=== PATIENT | male | born 1995 | race Caucasian/White ===

== ENCOUNTER 2016-09-15 13:11 | Inpatient (IN) | payer OTHER ==
[~2016-09-15] VITALS: Ht 179.1 cm; Wt 99.5 kg
[2016-09-15 13:35] VITALS: BP 129/57; PULSE 79; RESP 18; TEMP 98.8; O2SAT 99
[2016-09-15] MEDS ORDERED: ONDANSETRON HCL 4 MG/2 ML VIAL IV PUSH ONE (14:00)
[2016-09-15] MEDS ORDERED: HYDROmorphone HCL PF 1 MG/ML VIAL IV PUSH ONE (14:00)
[2016-09-15] MEDS ORDERED: SODIUM CHLOR 0.9% 1000 ML INJ 1,000 ML IV ONE (14:00)
[2016-09-15] MEDS ORDERED: SODIUM CHLORIDE 0.9% FLUSH 5 ML FLUSH IVF PRN (14:00)
[2016-09-15 14:11] VITALS: O2SAT 98
[2016-09-15 14:17] LABS: AUTOMATED NEUTROPHIL # 13.8 TH/MM3 (1.8-7.7); BASOPHIL # 0.7 TH/MM3 (0-0.2); BASOPHIL % 4.1 % (0.0-2.0); EOSINOPHIL # 0.1 TH/MM3 (0-0.4); EOSINOPHIL % 0.3 % (0.0-4.0); HEMATOCRIT 48.4 % (39.0-51.0); LYMPH % 7.6 % (9.0-44.0); LYMPHOCYTE # 1.3 TH/MM3 (1.0-4.8); MEAN CELL VOLUME 86.8 FL (80.0-100.0); MEAN CORPUSCULAR HEMOGLOBIN 29.2 PG (27.0-34.0); MEAN CORPUSCULAR HGB CONC 33.7 % (32.0-36.0); MONO % 9.8 % (0.0-8.0); NEUT % 78.2 % (16.0-70.0); PLATELET COUNT 232 TH/MM3 (150-450); RED BLOOD COUNT 5.57 MIL/MM3 (4.50-5.90); WHITE BLOOD COUNT 17.6 TH/MM3 (4.0-11.0)
--- NOTE | 2016-09-15 14:19 | PD ---
HPI Chief Complaint: Abdominal Pain Time Seen by Provider: 13:54 Travel History International Travel<30 days: No Contact w/Intl Traveler<30days: No Traveled to known affect area: No History of Present Illness HPI 20-year-old male with history of no significant past medical issues, presents to the ER today with periumbilical and right lower quadrant abdominal pains that started this morning. He has been nauseous but denies any vomiting. Pain is currently a 8 out of 10. He states it is constant. He does not know any exacerbating or alleviating factors. He denies any fevers, diarrhea, urinary symptoms, or any other issues. Modifying Factors: None Associated Signs & Symptoms: Right lower quadrant abdominal pain Risk Factors: None PFSH Past Medical History Medical History: Denies Significant Hx Past Surgical History Surgical History: No Previous Surgery Social History Alcohol Use: Yes (occ) Tobacco Use: No Substance Use: No Allergies-Medications (Allergen,Severity, Reaction): Coded Allergies: No Known Allergies (Unverified , 09/15/16) Review of Systems Except as stated in HPI: all other systems reviewed are Neg Physical Exam Narrative GENERAL: Well-developed young white male patient in mild distress. SKIN: Warm and dry. HEAD: Atraumatic. Normocephalic. EYES: Pupils equal and round. No scleral icterus. No injection or drainage. ENT: No nasal bleeding or discharge. Mucous membranes pink and moist. NECK: Trachea midline. No JVD. CARDIOVASCULAR: Regular rate and rhythm. No murmur appreciated. RESPIRATORY: No accessory muscle use. Clear to auscultation. Breath sounds equal bilaterally. GASTROINTESTINAL: Abdomen soft, right lower quadrant tenderness without guarding or rebound, nondistended. Hepatic and splenic margins not palpable. Positive Rovsing sign. MUSCULOSKELETAL: No obvious deformities. No clubbing. No cyanosis. No edema. NEUROLOGICAL: Awake and alert. No obvious cranial nerve deficits. Motor grossly within normal limits. Normal speech. PSYCHIATRIC: Appropriate mood and affect; insight and judgment normal. Data Data Last Documented VS Vital Signs Date Time Temp Pulse Resp B/P Pulse Ox O2 Delivery O2 Flow Rate FiO2 09/15/16 15:43 90 18 114/59 97 Room Air 09/15/16 13:35 98.8 Orders Complete Blood Count With Diff (09/15/16 13:47) Comprehensive Metabolic Panel (09/15/16 13:47) Lipase (09/15/16 13:47) Urinalysis - C+S If Indicated (09/15/16 13:47) Iv Access Insert/Monitor (09/15/16 13:47) Ecg Monitoring (09/15/16 13:47) Oximetry (09/15/16 13:47) Sodium Chloride 0.9% Flush (Ns Flush) (09/15/16 14:00) Sodium Chlor 0.9% 1000 Ml Inj (Ns 1000 M (09/15/16 14:00) Ondansetron Inj (Zofran Inj) (09/15/16 14:00) Hydromorphone Pf Inj (Dilaudid Pf Inj) (09/15/16 14:00) Ct Abd/Pel W Iv Contrast(Rout) (09/15/16 14:04) Iohexol 350 Inj (Omnipaque 350 Inj) (09/15/16 15:06) Metronidazole 500 Mg Inj (Flagyl 500 Mg (09/15/16 16:00) Ciprofloxacin 400 Mg Premix (Cipro 400 M (09/15/16 16:00) Labs Laboratory Tests Test 09/15/16 09/15/16 14:08 14:30 White Blood Count 17.6 TH/MM3 Red Blood Count 5.57 MIL/MM3 Hemoglobin 16.3 GM/DL Hematocrit 48.4 % Mean Corpuscular Volume 86.8 FL Mean Corpuscular Hemoglobin 29.2 PG Mean Corpuscular Hemoglobin 33.7 % Concent Red Cell Distribution Width 12.0 % Platelet Count 232 TH/MM3 Mean Platelet Volume 9.6 FL Neutrophils (%) (Auto) 78.2 % Lymphocytes (%) (Auto) 7.6 % Monocytes (%) (Auto) 9.8 % Eosinophils (%) (Auto) 0.3 % Basophils (%) (Auto) 4.1 % Neutrophils # (Auto) 13.8 TH/MM3 Lymphocytes # (Auto) 1.3 TH/MM3 Monocytes # (Auto) 1.7 TH/MM3 Eosinophils # (Auto) 0.1 TH/MM3 Basophils # (Auto) 0.7 TH/MM3 CBC Comment DIFF FINAL Differential Comment Sodium Level 140 MEQ/L Potassium Level 3.8 MEQ/L Chloride Level 105 MEQ/L Carbon Dioxide Level 26.5 MEQ/L Anion Gap 9 MEQ/L Blood Urea Nitrogen 12 MG/DL Creatinine 1.00 MG/DL Estimat Glomerular Filtration 94 ML/MIN Rate Random Glucose 92 MG/DL Calcium Level 8.8 MG/DL Total Bilirubin 0.8 MG/DL Aspartate Amino Transf 17 U/L (AST/SGOT) Alanine Aminotransferase 39 U/L (ALT/SGPT) Alkaline Phosphatase 103 U/L Total Protein 7.1 GM/DL Albumin 4.0 GM/DL Lipase 104 U/L Urine Collection Type CLEAN CATCH Urine Color YELLOW Urine Turbidity CLEAR Urine pH 8.0 Urine Specific [place] 1.020 Urine Protein TRACE mg/dL Urine Glucose (UA) NEG mg/dL Urine Ketones 40 mg/dL Urine Occult Blood NEG Urine Nitrite NEG Urine Bilirubin NEG Urine Leukocyte Esterase NEG Urine WBC 0-2 /hpf Microscopic Urinalysis Comment CULT NOT INDICATED MDM Medical Decision Making Medical Screen Exam Complete: Yes Emergency Medical Condition: Yes Medical Record Reviewed: Yes Interpretation(s) Laboratory Tests Test 09/15/16 09/15/16 14:08 14:30 White Blood Count 17.6 TH/MM3 (4.0-11.0) Neutrophils (%) (Auto) 78.2 % (16.0-70.0) Lymphocytes (%) (Auto) 7.6 % (9.0-44.0) Monocytes (%) (Auto) 9.8 % (0.0-8.0) Basophils (%) (Auto) 4.1 % (0.0-2.0) Neutrophils # (Auto) 13.8 TH/MM3 (1.8-7.7) Monocytes # (Auto) 1.7 TH/MM3 (0-0.9) Basophils # (Auto) 0.7 TH/MM3 (0-0.2) Urine Ketones 40 mg/dL (NEG) Last 24 hours Impressions Abdomen/Pelvis CT 09/15/16 1404 Signed Impressions: Service Date/Time: Thursday, September 15, 2016 14:48 - CONCLUSION: Bowel wall thickening mid transverse colon and pericecal adenopathy. Colitis and inflammatory bowel disease would be consideration. There is no evidence for appendicitis. There is no free air or free fluid. Chester Moss MD FACR Differential Diagnosis Right lower quadrant abdominal painsgastroenteritis versus appendicitis versus renal colic Narrative Course Initial lab work shows leukocytosis and CAT scan is showing questionable cecal summation concerning for possible inflammatory bowel disease. The appendix is visualized and normal. Considering the patient's exam, case was discussed with Dr. Art who states that he feels that the patient should be medically admitted with consult to GI for inflammatory bowel disease. The case was discussed with Dr. Gatica states that he would like to do further colonoscopy for evaluation. Case was then discussed with Dr. Avelar for admission. Diagnosis Primary Impression: Right lower quadrant abdominal pain Admitting Information Admitting Physician Requests: it Iva Dong MD Sep 15, 2016 14:19
[2016-09-15 14:23] LABS: CHLORIDE 105 MEQ/L (98-107); POTASSIUM 3.8 MEQ/L (3.5-5.1); SODIUM (NA) 140 MEQ/L (136-145)
[2016-09-15 14:26] LABS: ANION GAP 9 MEQ/L (5-15); BICARBONATE 26.5 MEQ/L (21.0-32.0)
[2016-09-15 14:27] LABS: BLOOD UREA NITROGEN 12 MG/DL (7-18)
[2016-09-15 14:29] LABS: ALT (GPT) 39 U/L (12-78); AST (GOT) 17 U/L (15-37)
[2016-09-15 14:30] LABS: GLOMERULAR FILTRATION RATE 94 ML/MIN (>89)
[2016-09-15 14:31] LABS: TOTAL BILIRUBIN ADULT 0.8 MG/DL (0.2-1.0)
[2016-09-15 14:32] LABS: ALKALINE PHOSPHATASE 103 U/L (45-117)
[2016-09-15 14:33] LABS: HEMO FLAGS DIFF FINAL
[2016-09-15 14:36] LABS: BLOOD, URINE NEG (NEG); GLUCOSE,URINE NEG (NEG); KETONE, URINE 40 mg/dL (NEG); NITRITE,URINE NEG (NEG)
[2016-09-15 14:41] LABS: METHOD OF COLLECTION CLEAN CATCH; URINE COLOR YELLOW (YELLW/STRAW)
[2016-09-15 14:42] LABS: COMMENT (UR) CULT NOT INDICATED; CULTURE IF INDICATED CULT NOT INDICATED; WBC, URINE 0-2 /hpf (0-5)
[2016-09-15] MEDS ORDERED: IOHEXOL 350 MG/ML 10 ML VIAL (for RAD DIAG) IV ONE (15:06)
--- NOTE | 2016-09-15 15:33 | RADHPO ---
EXAM DATE/TIME: 09/15/2016 14:48 [facility] COMPARISON: No previous studies available for comparison. INDICATIONS : Right lower quadrant pain. IV CONTRAST: 95 cc Omnipaque 350 (iohexol) IV ORAL CONTRAST: No oral contrast ingested. RADIATION DOSE: 26.86 CTDIvol (mGy) MEDICAL HISTORY : None SURGICAL HISTORY : None. ENCOUNTER: Initial ACUITY: 1 day PAIN SCALE: 7/10 LOCATION: Right lower quadrant TECHNIQUE: Volumetric scanning of the abdomen and pelvis was performed. Using automated exposure control and ad justment of the mA and/or kV according to patient size, radiation dose was kept as low as reasonably achievable to obtain optimal diagnostic quality images. FINDINGS: LOWER LUNGS: The visualized lower lungs are clear. LIVER: Homogeneous density without lesion. There is no dilation of the biliary tree. No calcified gallston es. SPLEEN: Normal size without lesion. PANCREAS: Within normal limits. KIDNEYS: Normal in size and shape. There is no mass, stone or hydronephrosis. ADRENAL GLANDS: Within normal limits. VASCULAR: There is no aortic aneurysm. BOWEL/MESENTERY: There is bowel wall thickening in the transverse colon. There is moderate pericecal adenopathy. Thi s can be seen both inflammatory bowel disease and colitis. There is no evidence for an appendicitis. . ABDOMINAL WALL: Within normal limits. RETROPERITONEUM: There is no lymphadenopathy. BLADDER: No wall thickening or mass. REPRODUCTIVE: Within normal limits. INGUINAL: There is no lymphadenopathy or hernia. MUSCULOSKELETAL: Within normal limits for patient age. CONCLUSION: Bowel wall thickening mid transverse colon and pericecal adenopathy. Colitis and inflammatory bowel disease would be consideration. There is no evidence for appendicitis. There is no free air or free fluid. Chester Moss MD FACR on September 15, 2016 at 15:29 Board Certified Radiologist. This report was verified electronically.
[2016-09-15 15:43] VITALS: BP 114/59; PULSE 90; RESP 18; O2SAT 97
[2016-09-15] MEDS ORDERED: CIPROFLOXACIN 400 MG PREMIX 200 ML IV ONE (16:00)
[2016-09-15] MEDS ORDERED: metroNIDAZOLE 500 MG INJ 100 ML IV ONE (16:00)
[2016-09-15 17:12] VITALS: BP 116/56; PULSE 89; RESP 18; O2SAT 98
[2016-09-15] MEDS ORDERED: ONDANSETRON HCL 4 MG/2 ML VIAL IVP PRN (17:15)
[2016-09-15] MEDS ORDERED: ACETAMINOPHEN 325 MG TAB PO PRN ×2 (17:15)
[2016-09-15] MEDS ORDERED: NALOXONE HCL 0.4 MG/ML AMP IV PRN (17:15)
--- NOTE | 2016-09-15 17:18 | HHI.HP ---
[facility] Rajiv Viveros MD Admission Diagnosis right lower quadrant abdominal pain/cecal inflammation Diagnoses: (1) Right lower quadrant abdominal pain (2) Colitis (3) IBD (inflammatory bowel disease) Chief Complaint: Right lower quadrant pain Travel History International Travel<30 Days: No Contact w/Intl Traveler <30 Da: No Traveled to Known Affected Are: No History of Present Illness 20 year-old female with no significant past medical history presented to the ED for evaluation of an acute onset of right lower quadrant rated 8/10 in intensity which started last night associated with nausea without any emesis and decreased by mouth intake since this morning. Patient states he had one episode of diarrhea on Tuesday which resolved, and denies any mucus or blood present. Denies any bladder or bowel dysfunction prior to this episode and he is currently healthy. He is not on any medication. There was no associated febrile episode however patient now with WBC of 17.6. Review of Systems Other 12 systems reviewed and are negative except for the one mentioned in the history of present illness Past Family Social History Past Medical History Denies Significant Hx Past Surgical History No Previous Surgery Reported Medications Not currently on any medication Allergies: Coded Allergies: No Known Allergies (Unverified , 09/15/16) Family History Mom with a history of hypertension Reports family history of IBD Social History Alcohol Use: Yes (occ) Tobacco Use: No Substance Use: No Physical Exam Vital Signs Vital Signs Date Time Temp Pulse Resp B/P Pulse Ox O2 Delivery O2 Flow Rate FiO2 09/15/16 17:12 89 18 116/56 98 Room Air 09/15/16 15:43 90 18 114/59 97 Room Air 09/15/16 14:11 98 Room Air 09/15/16 13:35 98.8 79 18 129/57 99 Physical Exam GENERAL: This is a well-nourished, well-developed patient, in no apparent distress. SKIN: No rashes, ecchymoses or lesions. Cool and dry. HEAD: Atraumatic. Normocephalic. No temporal or scalp tenderness. EYES: Pupils equal round and reactive. Extraocular motions intact. No scleral icterus. No injection or drainage. ENT: Nose without bleeding, purulent drainage or septal hematoma. Throat without erythema, tonsillar hypertrophy or exudate. Uvula midline. Airway patent. NECK: Trachea midline. No JVD or lymphadenopathy. Supple, nontender, no meningeal signs. CARDIOVASCULAR: Regular rate and rhythm without murmurs, gallops, or rubs. RESPIRATORY: Clear to auscultation. Breath sounds equal bilaterally. No wheezes , rales, or rhonchi. GASTROINTESTINAL: Abdomen soft, tender right lower quadrant, nondistended. No hepato-splenomegaly, or palpable masses. No guarding. MUSCULOSKELETAL: Extremities without clubbing, cyanosis, or edema. No joint tenderness, effusion, or edema noted. No calf tenderness. Negative Homans sign bilaterally. NEUROLOGICAL: Awake and alert. Cranial nerves II through XII intact. Motor and sensory grossly within normal limits. Five out of 5 muscle strength in all muscle groups. Normal speech. Laboratory Laboratory Tests Test 09/15/16 09/15/16 14:08 14:30 White Blood Count 17.6 Red Blood Count 5.57 Hemoglobin 16.3 Hematocrit 48.4 Mean Corpuscular Volume 86.8 Mean Corpuscular Hemoglobin 29.2 Mean Corpuscular Hemoglobin 33.7 Concent Red Cell Distribution Width 12.0 Platelet Count 232 Mean Platelet Volume 9.6 Neutrophils (%) (Auto) 78.2 Lymphocytes (%) (Auto) 7.6 Monocytes (%) (Auto) 9.8 Eosinophils (%) (Auto) 0.3 Basophils (%) (Auto) 4.1 Neutrophils # (Auto) 13.8 Lymphocytes # (Auto) 1.3 Monocytes # (Auto) 1.7 Eosinophils # (Auto) 0.1 Basophils # (Auto) 0.7 CBC Comment DIFF FINAL Differential Comment Sodium Level 140 Potassium Level 3.8 Chloride Level 105 Carbon Dioxide Level 26.5 Anion Gap 9 Blood Urea Nitrogen 12 Creatinine 1.00 Estimat Glomerular Filtration 94 Rate Random Glucose 92 Calcium Level 8.8 Total Bilirubin 0.8 Aspartate Amino Transf 17 (AST/SGOT) Alanine Aminotransferase 39 (ALT/SGPT) Alkaline Phosphatase 103 Total Protein 7.1 Albumin 4.0 Lipase 104 Urine Collection Type CLEAN CATCH Urine Color YELLOW Urine Turbidity CLEAR Urine pH 8.0 Urine Specific [place] 1.020 Urine Protein TRACE Urine Glucose (UA) NEG Urine Ketones 40 Urine Occult Blood NEG Urine Nitrite NEG Urine Bilirubin NEG Urine Leukocyte Esterase NEG Urine WBC 0-2 Microscopic Urinalysis Comment CULT NOT INDICATED Result Diagram: 09/15/16 1408 09/15/16 1408 Imaging Last Impressions Abdomen/Pelvis CT 09/15/16 1404 Signed Impressions: Service Date/Time: Thursday, September 15, 2016 14:48 - CONCLUSION: Bowel wall thickening mid transverse colon and pericecal adenopathy. Colitis and inflammatory bowel disease would be consideration. There is no evidence for appendicitis. There is no free air or free fluid. Chester Moss MD FACR Assessment and Plan Problem List: (1) Right lower quadrant abdominal pain ICD Code: R10.31 Status: Acute (2) Colitis ICD Code: K52.9 Status: Acute (3) IBD (inflammatory bowel disease) ICD Code: K52.9 Status: Acute Assessment and Plan 20-year-old male with 1-Right lower quadrant pain: CT abdomen noted and reviewed by me with finding questionable for colitis and IBD. Pain management accordingly 2-Colitis: Per CT abdomen /pelvic finding, status post Flagyl and Cipro IV 1, continue with antibiotics and the presence of WBC. 3-Questionable IBD per CT abdomen/pelvics finding: Gastroenterology consultation for evaluation for possible colonoscopy. Clear liquid now, bowel prep and nothing by mouth after midnight. 4-Leukocytosis: Treat as in above DVT prophylaxis: Encourage ambulation Code Status Full code Discussed Condition With Patient, mom, ED physician Physician Certification 2 Midnight Certification Type: Admission for Inpatient Services Order for Inpatient Services The services are ordered in accordance with Medicare regulations or non- Medicare payer requirements, as applicable. In the case of services not specified as inpatient-only, they are appropriately provided as inpatient services in accordance with the 2-midnight benchmark. Estimated LOS (days): 2 days is the estimated time the patient will need to remain in the hospital, assuming treatment plan goals are met and no additional complications. Post-Hospital Plan: Not yet determined Zak Avelar MD Sep 15, 2016 17:18
[2016-09-15] MEDS ORDERED: MORPHINE SULFATE 4 MG/ML INJ IV PUSH PRN (18:00)
[2016-09-15 18:02] VITALS: BP 119/70; PULSE 78; RESP 16; TEMP 98.1; O2SAT 97
[2016-09-15 20:00] VITALS: BP 114/62; PULSE 77; RESP 20; TEMP 98.2; O2SAT 99
[2016-09-15] MEDS: LACTOBACILLUS ACIDOPHILUS TAB PO SCH (20:25)
[2016-09-15] MEDS: ACETAMINOPHEN/HYDROcodone 325 MG/5 MG TAB PO PRN (20:26)
[2016-09-15] MEDS: SODIUM CHLORIDE 0.9% FLUSH 5 ML FLUSH FLUSH SCH (20:26)
--- NOTE | 2016-09-15 20:49 | PD.CONS ---
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 PFSH Past Medical History None Past Surgical History None Coded Allergies: No Known Allergies (Unverified , 09/15/16) Medications None Family History Mom with a history of hypertension No family history of inflammatory bowel disease Social History Occasional alcohol USE otherwise unremarkable Review of Systems ROS Review of systems Patient denies any headache dizziness blurry vision, denies any chest pain shortness of breath cough fever chills, Denies any palpitations or fatigue denies any polyuria dysuria hematuria, denies any numbness tingling or weakness, denies any skin rash pruritus or jaundice, denies any easy bruising or bleeding tendency, denies any recent change in mood GI Exam Vitals I&O Vital Signs Date Time Temp Pulse Resp B/P Pulse Ox O2 Delivery O2 Flow Rate FiO2 09/15/16 20:00 98.2 77 20 114/62 99 09/15/16 18:02 98.1 78 16 119/70 97 09/15/16 17:12 89 18 116/56 98 Room Air 09/15/16 15:43 90 18 114/59 97 Room Air 09/15/16 14:11 98 Room Air 09/15/16 13:35 98.8 79 18 129/57 99 I/O 09/14/16 09/14/16 09/14/16 09/15/16 09/15/16 09/15/16 07:00 15:00 23:00 07:00 15:00 23:00 Intake Total 1300 ml Balance 1300 ml Intake Oral 300 ml IV Total 1000 ml Imaging Last Impressions Abdomen/Pelvis CT 09/15/16 1404 Signed Impressions: Service Date/Time: Thursday, September 15, 2016 14:48 - CONCLUSION: Bowel wall thickening mid transverse colon and pericecal adenopathy. Colitis and inflammatory bowel disease would be consideration. There is no evidence for appendicitis. There is no free air or free fluid. Chester Moss MD FACR Laboratory Test 09/15/16 09/15/16 14:08 14:30 White Blood Count 17.6 TH/MM3 Red Blood Count 5.57 MIL/MM3 Hemoglobin 16.3 GM/DL Hematocrit 48.4 % Mean Corpuscular Volume 86.8 FL Mean Corpuscular Hemoglobin 29.2 PG Mean Corpuscular Hemoglobin 33.7 % Concent Red Cell Distribution Width 12.0 % Platelet Count 232 TH/MM3 Mean Platelet Volume 9.6 FL Neutrophils (%) (Auto) 78.2 % Lymphocytes (%) (Auto) 7.6 % Monocytes (%) (Auto) 9.8 % Eosinophils (%) (Auto) 0.3 % Basophils (%) (Auto) 4.1 % Neutrophils # (Auto) 13.8 TH/MM3 Lymphocytes # (Auto) 1.3 TH/MM3 Monocytes # (Auto) 1.7 TH/MM3 Eosinophils # (Auto) 0.1 TH/MM3 Basophils # (Auto) 0.7 TH/MM3 CBC Comment DIFF FINAL Differential Comment Sodium Level 140 MEQ/L Potassium Level 3.8 MEQ/L Chloride Level 105 MEQ/L Carbon Dioxide Level 26.5 MEQ/L Anion Gap 9 MEQ/L Blood Urea Nitrogen 12 MG/DL Creatinine 1.00 MG/DL Estimat Glomerular Filtration 94 ML/MIN Rate Random Glucose 92 MG/DL Calcium Level 8.8 MG/DL Total Bilirubin 0.8 MG/DL Aspartate Amino Transf 17 U/L (AST/SGOT) Alanine Aminotransferase 39 U/L (ALT/SGPT) Alkaline Phosphatase 103 U/L Total Protein 7.1 GM/DL Albumin 4.0 GM/DL Lipase 104 U/L Urine Collection Type CLEAN CATCH Urine Color YELLOW Urine Turbidity CLEAR Urine pH 8.0 Urine Specific [place] 1.020 Urine Protein TRACE mg/dL Urine Glucose (UA) NEG mg/dL Urine Ketones 40 mg/dL Urine Occult Blood NEG Urine Nitrite NEG Urine Bilirubin NEG Urine Leukocyte Esterase NEG Urine WBC 0-2 /hpf Microscopic Urinalysis Comment CULT NOT INDICATED Physical Examination HEENT: Pupils round and reactive to light; normocephalic; atraumatic; no jaundice. Throat is clear. NECK: Neck is supple, no JVD, no lymphadenopathy. CHEST: Chest is clear to auscultation and percussion. CARDIAC: Regular rate and rhythm with no murmur gallop or rubs. ABDOMEN: Soft, nondistended, moderately to moderately severe tenderness especially in the right lower quadrant with some rebound and guarding; no hepatosplenomegaly; bowel sounds are present in all four quadrants. EXTREMITIES: No clubbing, cyanosis, or edema. SKIN: Normal; no rash; no jaundice. [employer]EE[employer] HIGHWAYS: No focal deficits; alert and oriented times three. Assessment and Plan Plan Abdominal pain Acute colitis of unclear etiology but most likely to be infectious can't rule out inflammatory at this point Case discussed with Dr. Rubens Lipscomb appendicitis at this point I would continue with aggressive hydration and continue with antibiotics We will hold off on endoscopy at this point and allow the antibiotics to work if symptoms persist then we will pursue colonoscopy otherwise this may be done on an outpatient basis if he continues to do well with antibiotic use Further recommendation shall depend on his hospital course Yosvany Moore MD Sep 15, 2016 20:49
--- NOTE | 2016-09-15 23:10 | MB ---
cc: RAMESH RATLIFF M.D. DATE OF CONSULTATION: 09/15/2016 REASON FOR CONSULTATION: Right lower quadrant pain. HISTORY OF PRESENT ILLNESS The patient is a 20-year-old male with no significant past medical history with acute onset of right lower quadrant pain that started last night and has continued to remain severe. The patient has not had any emesis but has had nausea and has had a decreased p.o. intake. The patient had one episode of diarrhea on Tuesday (three days ago) which resolved. He has not had any other episodes of this. REVIEW OF SYSTEMS: 12-point review of systems is negative except as indicated above. PAST SURGICAL HISTORY: Includes removal wisdom teeth. He has not had any other surgery. ALLERGIES: None known. FAMILY HISTORY: History of hypertension in the family. Family history of inflammatory bowel disease. SOCIAL HISTORY: The patient uses alcohol occasionally, does not smoke or use other substances. PHYSICAL EXAMINATION: Reveals a tall heavy framed individual in no acute distress. VITAL SIGNS: Blood pressure 114/62, pulse 77, respiratory rate 20, temperature 98.2, 99% saturation on room air. HEENT: Sclerae anicteric. Pupils reactive. Chest: Clear to auscultation. Cardiac exam reveals regular rate and rhythm. Abdomen is soft with tenderness in the right lower quadrant with guarding. There is a positive Rovsing's sign with pain in the right lower quadrant when pressing on the left. There are no hernias noted. LABORATORY VALUES: Laboratory values demonstrate WBCs of 17.6. Electrolytes are essentially within normal limits and LFTs are normal as well. Urinalysis demonstrates urine ketones. IMAGING STUDIES Specifically reports no evidence of appendicitis and bowel wall thickening in the transverse colon and some moderate butch cecal adenopathy. This is thought to be due to either inflammatory bowel disease or colitis. ASSESSMENT The patient was seen simultaneously with Dr. Moore. Discussion with the patient and his mother ensued and it is very likely that the patient has an infectious etiology for his colitis, although an inflammatory process is also possible. The patient is on Cipro and Flagyl already; he has repeat labs ordered in the morning. PLAN: The patient can continue on clear liquid diet. We will follow with you. If his white count decreases tomorrow and his abdominal pain is better, we will likely sign off within 24 to 48 hours. He will likely not require any surgery given the findings. Thank you for asking us to see this individual. MD BAKARI Espinosa/URIEL /9:13 PM /11:04 PM
[2016-09-15] MEDS: metroNIDAZOLE 500 MG INJ 100 ML IV SCH (23:34)
[2016-09-15] MEDS: SODIUM CHLORIDE 0.9% FLUSH 5 ML FLUSH FLUSH PRN (23:34)
[2016-09-16] VITALS: BP 111/59; PULSE 61; RESP 20; TEMP 97.5; O2SAT 97
[2016-09-16] MEDS: SODIUM CHLORIDE 0.9% FLUSH 5 ML FLUSH FLUSH PRN (03:44)
[2016-09-16] MEDS: CIPROFLOXACIN 400 MG PREMIX 200 ML IV SCH ×2 (03:44→15:59)
[2016-09-16] MEDS: ACETAMINOPHEN/HYDROcodone 325 MG/5 MG TAB PO PRN (03:44)
[2016-09-16 05:34] LABS: CHLORIDE 103 MEQ/L (98-107); POTASSIUM 3.5 MEQ/L (3.5-5.1); SODIUM (NA) 139 MEQ/L (136-145)
[2016-09-16 05:36] LABS: BASOPHIL % 0.4 % (0.0-2.0); EOSINOPHIL # 0.2 TH/MM3 (0-0.4); EOSINOPHIL % 2.2 % (0.0-4.0); HEMO FLAGS DIFF FINAL; LYMPH % 20.2 % (9.0-44.0); LYMPHOCYTE # 1.9 TH/MM3 (1.0-4.8); MEAN CORPUSCULAR HEMOGLOBIN 29.8 PG (27.0-34.0); MEAN CORPUSCULAR HGB CONC 33.8 % (32.0-36.0); MONO % 13.4 % (0.0-8.0); NEUT % 63.8 % (16.0-70.0); PLATELET COUNT 213 TH/MM3 (150-450); RED BLOOD COUNT 4.89 MIL/MM3 (4.50-5.90); RED CELL DISTRIBUTION WIDTH 12.5 % (11.6-17.2); WHITE BLOOD COUNT 9.3 TH/MM3 (4.0-11.0)
[2016-09-16 05:52] LABS: ALKALINE PHOSPHATASE 81 U/L (45-117); ALT (GPT) 30 U/L (12-78); ANION GAP 8 MEQ/L (5-15); AST (GOT) 11 U/L (15-37); BICARBONATE 28.5 MEQ/L (21.0-32.0); BLOOD UREA NITROGEN 9 MG/DL (7-18); GLOMERULAR FILTRATION RATE 97 ML/MIN (>89); TOTAL BILIRUBIN ADULT 0.8 MG/DL (0.2-1.0)
[2016-09-16 08:00] VITALS: BP 114/64; PULSE 63; RESP 18; TEMP 97.5; O2SAT 99
[2016-09-16] MEDS: metroNIDAZOLE 500 MG INJ 100 ML IV SCH ×3 (08:54→23:43)
[2016-09-16] MEDS: SODIUM CHLORIDE 0.9% FLUSH 5 ML FLUSH FLUSH SCH ×2 (08:55→21:00)
[2016-09-16] MEDS: LACTOBACILLUS ACIDOPHILUS TAB PO SCH ×2 (08:57→21:00)
[2016-09-16] MEDS: PANTOPRAZOLE SODIUM 40 MG VIAL IV PUSH SCH (08:57)
[2016-09-16] MEDS ORDERED: INFLUENZA VIRUS VACCINE (QUADRIVALENT) 0.5 ML SYR IM ONE (10:00)
--- NOTE | 2016-09-16 10:41 | HHI.PR ---
Subjective Remarks Patient resting comfortably in bed Still having mild right upper quadrant abdominal discomfort, no nausea or vomiting, no bowel movement Objective Vitals Vital Signs Date Time Temp Pulse Resp B/P Pulse Ox O2 Delivery O2 Flow Rate FiO2 09/16/16 08:00 97.5 63 18 114/64 99 09/16/16 00:00 97.5 61 20 111/59 97 09/15/16 20:00 98.2 77 20 114/62 99 09/15/16 18:02 98.1 78 16 119/70 97 09/15/16 17:12 89 18 116/56 98 Room Air 09/15/16 15:43 90 18 114/59 97 Room Air 09/15/16 14:11 98 Room Air 09/15/16 13:35 98.8 79 18 129/57 99 I/O 09/15/16 09/15/16 09/15/16 09/16/16 09/16/16 09/16/16 07:00 15:00 23:00 07:00 15:00 23:00 Intake Total 1780 ml 240 ml Balance 1780 ml 240 ml Intake Oral 780 ml 240 ml IV Total 1000 ml # Voids 2 2 # Bowel Movements 0 0 Result Diagram: 09/16/16 0454 09/16/16 0454 Objective Remarks GENERAL: This is a well-nourished, well-developed patient, in no apparent distress. SKIN: No rashes, warm and dry HEAD: Atraumatic. Normocephalic. EYES: Pupils equal round and reactive. Extraocular motions intact. No scleral icterus. ENT: Nose without bleeding, or drainage, Airway patent. NECK: Trachea midline. Supple CARDIOVASCULAR: Regular rate and rhythm without murmurs, gallops, or rubs. RESPIRATORY: Fair air entry bilaterally. No wheezes, rales, or rhonchi. GASTROINTESTINAL: Abdomen soft, non-tender, nondistended. Positive bowel sounds MUSCULOSKELETAL: Extremities without clubbing, cyanosis, or edema. Pedal pulses appreciated NEUROLOGICAL: Awake and alert. Moves all extremity. Normal speech.no focal neurological deficit A/P Problem List: (1) Right lower quadrant abdominal pain ICD Code: R10.31 Status: Acute (2) Colitis ICD Code: K52.9 Status: Acute (3) IBD (inflammatory bowel disease) ICD Code: K52.9 Status: Acute Assessment and Plan 20-year-old male with -Right lower quadrant pain: Personal review CT abdomen suggesting colitis and IBD. Pain management accordingly, bowel rest, GI and GS consulted, will follow the recommendation -Colitis: Per CT abdomen /pelvic finding, Flagyl and Cipro IV , close monitoring with GI and GS -Leukocytosis: Resolved DVT prophylaxis: Encourage ambulation Zara Deleon MD Sep 16, 2016 10:41
[2016-09-16 12:00] VITALS: BP 115/59; PULSE 68; RESP 18; TEMP 98.2; O2SAT 98
--- NOTE | 2016-09-16 12:26 | HHI.PR ---
Subjective Subjective Notes Resting in bed Pain better today Objective Vitals/I&O Vital Signs Date Time Temp Pulse Resp B/P Pulse Ox O2 Delivery O2 Flow Rate FiO2 09/16/16 08:00 97.5 63 18 114/64 99 09/15/16 17:12 Room Air Labs Laboratory Tests Test 09/15/16 09/15/16 09/16/16 14:08 14:30 04:54 White Blood Count 17.6 9.3 Red Blood Count 5.57 4.89 Hemoglobin 16.3 14.6 Hematocrit 48.4 43.0 Mean Corpuscular Volume 86.8 88.0 Mean Corpuscular Hemoglobin 29.2 29.8 Mean Corpuscular Hemoglobin 33.7 33.8 Concent Red Cell Distribution Width 12.0 12.5 Platelet Count 232 213 Mean Platelet Volume 9.6 9.8 Neutrophils (%) (Auto) 78.2 63.8 Lymphocytes (%) (Auto) 7.6 20.2 Monocytes (%) (Auto) 9.8 13.4 Eosinophils (%) (Auto) 0.3 2.2 Basophils (%) (Auto) 4.1 0.4 Neutrophils # (Auto) 13.8 6.0 Lymphocytes # (Auto) 1.3 1.9 Monocytes # (Auto) 1.7 1.2 Eosinophils # (Auto) 0.1 0.2 Basophils # (Auto) 0.7 0.0 CBC Comment DIFF FINAL DIFF FINAL Differential Comment Sodium Level 140 139 Potassium Level 3.8 3.5 Chloride Level 105 103 Carbon Dioxide Level 26.5 28.5 Anion Gap 9 8 Blood Urea Nitrogen 12 9 Creatinine 1.00 0.98 Estimat Glomerular Filtration 94 97 Rate Random Glucose 92 111 Calcium Level 8.8 7.8 Total Bilirubin 0.8 0.8 Aspartate Amino Transf 17 11 (AST/SGOT) Alanine Aminotransferase 39 30 (ALT/SGPT) Alkaline Phosphatase 103 81 Total Protein 7.1 6.1 Albumin 4.0 3.2 Lipase 104 Urine Collection Type CLEAN CATCH Urine Color YELLOW Urine Turbidity CLEAR Urine pH 8.0 Urine Specific [place] 1.020 Urine Protein TRACE Urine Glucose (UA) NEG Urine Ketones 40 Urine Occult Blood NEG Urine Nitrite NEG Urine Bilirubin NEG Urine Leukocyte Esterase NEG Urine WBC 0-2 Microscopic Urinalysis Comment CULT NOT INDICATED Cardiovascular: Regular Lungs: Clear Abdomen: Other (RLQ tenderness with palpation (mild) ) Extremities: No edema A/P Assessment and Plan 20 year old male with RLQ abdominal pain; ? infectious colitis -WBC improved -Advance to fulls today -OOB and mobilize -Continue antibiotics Attending Note - Dr. Art Abdomen benign WBC's 9.3 Tolerating full liquids today Advance diet in AM Probable D/C tomorrow if ok with med team The exam, history, and the medical decision-making described in the above note were completed with the assistance of the mid-level provider. I reviewed and agree with the findings presented. I attest that I had a [id number] encounter with the patient on the same day, and personally performed and documented my assessment and findings in the medical record. Doris Randall Sep 16, 2016 12:25 Grant Art MD Sep 16, 2016 19:08
[2016-09-16 16:00] VITALS: BP 119/68; PULSE 60; RESP 18; TEMP 98.8; O2SAT 98
[2016-09-16 20:00] VITALS: BP 113/60; PULSE 54; RESP 20; TEMP 97.1; O2SAT 98
--- NOTE | 2016-09-16 20:33 | HHI.GIFU ---
Subjective Remarks Patient comfortable in bed with little to no abdominal pain he has not required any pain medications since earlier in the day he is tolerating his liquids and gelatin Objective Vitals I&O Vital Signs Date Time Temp Pulse Resp B/P Pulse Ox O2 Delivery O2 Flow Rate FiO2 09/16/16 16:00 98.8 60 18 119/68 98 09/16/16 12:00 98.2 68 18 115/59 98 09/16/16 08:00 97.5 63 18 114/64 99 09/16/16 00:00 97.5 61 20 111/59 97 I/O 09/15/16 09/15/16 09/15/16 09/16/16 09/16/16 09/16/16 07:00 15:00 23:00 07:00 15:00 23:00 Intake Total 1780 ml 240 ml 950 ml 440 ml Balance 1780 ml 240 ml 950 ml 440 ml Intake Oral 780 ml 240 ml 950 ml IV Total 1000 ml 440 ml # Voids 2 2 3 # Bowel Movements 0 0 0 Laboratory Laboratory Tests Test 09/16/16 04:54 White Blood Count 9.3 Red Blood Count 4.89 Hemoglobin 14.6 Hematocrit 43.0 Mean Corpuscular Volume 88.0 Mean Corpuscular Hemoglobin 29.8 Mean Corpuscular Hemoglobin 33.8 Concent Red Cell Distribution Width 12.5 Platelet Count 213 Mean Platelet Volume 9.8 Neutrophils (%) (Auto) 63.8 Lymphocytes (%) (Auto) 20.2 Monocytes (%) (Auto) 13.4 Eosinophils (%) (Auto) 2.2 Basophils (%) (Auto) 0.4 Neutrophils # (Auto) 6.0 Lymphocytes # (Auto) 1.9 Monocytes # (Auto) 1.2 Eosinophils # (Auto) 0.2 Basophils # (Auto) 0.0 CBC Comment DIFF FINAL Differential Comment Sodium Level 139 Potassium Level 3.5 Chloride Level 103 Carbon Dioxide Level 28.5 Anion Gap 8 Blood Urea Nitrogen 9 Creatinine 0.98 Estimat Glomerular Filtration 97 Rate Random Glucose 111 Calcium Level 7.8 Total Bilirubin 0.8 Aspartate Amino Transf 11 (AST/SGOT) Alanine Aminotransferase 30 (ALT/SGPT) Alkaline Phosphatase 81 Total Protein 6.1 Albumin 3.2 Imaging Last Impressions Abdomen/Pelvis CT 09/15/16 1404 Signed Impressions: Service Date/Time: Thursday, September 15, 2016 14:48 - CONCLUSION: Bowel wall thickening mid transverse colon and pericecal adenopathy. Colitis and inflammatory bowel disease would be consideration. There is no evidence for appendicitis. There is no free air or free fluid. Chester Moss MD FACR Physical Exam HEENT: Normocephalic, throat is clear NECK: Neck is supple CHEST: Chest is clear to auscultation and percussion. CARDIAC: Regular rate and rhythm with no murmur gallop or rubs. ABDOMEN: Soft, nondistended, nontender; no hepatosplenomegaly; bowel sounds are present in all four quadrants. EXTREMITIES: No clubbing, cyanosis, or edema. SKIN: Normal; no rash; no jaundice. [employer]: No focal deficits; alert and oriented times three. Assessment and Plan Plan Abdominal pain resolved Acute colitis of unclear etiology but most likely to be infectious can't rule out inflammatory at this point but patient is responding nicely to antibiotics his white count is back to normal and the pain has resolved Continue with a full course of antibiotics for 10 days Advanced diet as tolerated If all is stable tomorrow patient may be discharged from a GI standpoint Follow-up with GI post discharge at which time we'll discuss the possible need for colonoscopy Yosvany Moore MD Sep 16, 2016 20:33
[2016-09-17] VITALS: BP 121/72; PULSE 54; RESP 20; TEMP 98; O2SAT 98
[2016-09-17] MEDS: CIPROFLOXACIN 400 MG PREMIX 200 ML IV SCH (04:15)
[2016-09-17 06:52] LABS: HEMATOCRIT 43.9 % (39.0-51.0); MEAN CORPUSCULAR HEMOGLOBIN 29.8 PG (27.0-34.0); MEAN CORPUSCULAR HGB CONC 33.9 % (32.0-36.0); PLATELET COUNT 222 TH/MM3 (150-450); RED BLOOD COUNT 4.98 MIL/MM3 (4.50-5.90); RED CELL DISTRIBUTION WIDTH 12.2 % (11.6-17.2); REVIEW FLAG FINAL; WHITE BLOOD COUNT 6.3 TH/MM3 (4.0-11.0)
[2016-09-17] MEDS: PANTOPRAZOLE SODIUM 40 MG VIAL IV PUSH SCH (07:49)
[2016-09-17] MEDS: metroNIDAZOLE 500 MG INJ 100 ML IV SCH (07:49)
[2016-09-17] MEDS: LACTOBACILLUS ACIDOPHILUS TAB PO SCH (07:49)
[2016-09-17] MEDS: SODIUM CHLORIDE 0.9% FLUSH 5 ML FLUSH FLUSH SCH (07:50)
[2016-09-17 08:05] VITALS: BP 113/63; PULSE 69; RESP 18; TEMP 96.4; O2SAT 95
[2016-09-17 12:06] VITALS: BP 109/62; PULSE 88; RESP 17; TEMP 97.4; O2SAT 94
[2016-09-17] MEDS ORDERED: METR-1 PO (12:35)
[2016-09-17] MEDS ORDERED: CIPR500T2 PO (12:35)
[2016-09-17] MEDS ORDERED: HYDR-3516 PO (12:35)
[2016-09-17] MEDS ORDERED: LACT PO (12:35)
--- NOTE | 2016-09-17 12:39 | HHI.PR ---
Subjective Remarks Patient stated he is doing much better today, no nausea vomiting fever chills or abdominal discomfort, cleared by GI and GS to be discharged to follow up as an outpatient Objective Vitals Vital Signs Date Time Temp Pulse Resp B/P Pulse Ox O2 Delivery O2 Flow Rate FiO2 09/17/16 12:06 97.4 88 17 109/62 94 09/17/16 08:05 96.4 69 18 113/63 95 09/17/16 00:00 98.0 54 20 121/72 98 09/16/16 20:00 97.1 54 20 113/60 98 09/16/16 16:00 98.8 60 18 119/68 98 I/O 09/16/16 09/16/16 09/16/16 09/17/16 09/17/16 09/17/16 07:00 15:00 23:00 07:00 15:00 23:00 Intake Total 240 ml 950 ml 920 ml 480 ml Balance 240 ml 950 ml 920 ml 480 ml Intake Oral 240 ml 950 ml 480 ml 480 ml IV Total 440 ml # Voids 2 3 2 2 # Bowel Movements 0 0 0 0 Result Diagram: 09/17/16 0602 09/16/16 0454 Objective Remarks GENERAL: This is a well-nourished, well-developed patient, in no apparent distress. SKIN: No rashes, warm and dry HEAD: Atraumatic. Normocephalic. EYES: Pupils equal round and reactive. Extraocular motions intact. No scleral icterus. ENT: Nose without bleeding, or drainage, Airway patent. NECK: Trachea midline. Supple CARDIOVASCULAR: Regular rate and rhythm without murmurs, gallops, or rubs. RESPIRATORY: Fair air entry bilaterally. No wheezes, rales, or rhonchi. GASTROINTESTINAL: Abdomen soft, non-tender, nondistended. Positive bowel sounds MUSCULOSKELETAL: Extremities without clubbing, cyanosis, or edema. Pedal pulses appreciated NEUROLOGICAL: Awake and alert. Moves all extremity. Normal speech.no focal neurological deficit A/P Problem List: (1) Right lower quadrant abdominal pain ICD Code: R10.31 Status: Acute (2) Colitis ICD Code: K52.9 Status: Acute (3) IBD (inflammatory bowel disease) ICD Code: K52.9 Status: Acute Assessment and Plan 20-year-old male with -Right lower quadrant pain: Personal review CT abdomen suggesting colitis and IBD. Pain management accordingly, bowel rest, GI and GS consulted, will follow the recommendation -Colitis: Per CT abdomen /pelvic finding, Flagyl and Cipro IV , close monitoring with GI and GS -Leukocytosis: Resolved DVT prophylaxis: Encourage ambulation Today 09/17/16: Patient cleared by GI to be discharged and follow up as an outpatient for outpatient colonoscopy, also GI planning on clearing for discharge if able to tolerate diet Discharge Planning Discharge patient to home Condition on discharge: Improved Regular Diet as tolerated Ad Demetria activity Rx written: Flagyl and Cipro for 10 days, [place] for pain as needed Follow-up with primary care physician in one week, GI in 2 weeks, general surgery as directed Zara Deleon MD Sep 17, 2016 12:39
== END 2016-09-17 14:00 | disposition home or self-care (01) | DRG 392 ==
LOC: PHED 13:11 → PHEDA 16:13 → PH3A 17:49 → OBSVTOIN 09-16 08:50
PROVIDERS: ADMIT Hospitalist; ATTEND Hospitalist
DX: A09 Infectious gastroenteritis and colitis, unspecified (principal); K58.9 Irritable bowel syndrome, unspecified; Z82.49 Family history of ischemic heart disease and other diseases of the circulatory system; Z83.79 Family history of other diseases of the digestive system; Z23 Encounter for immunization
CPT/HCPCS: 74177; 80053; 81001; 83690; 85025; 85027; 90686; 96361; 96374; 96375; C9113; J0744; J1170; J2270; J2405; J7030; Q2038; Q9967